=== PATIENT | female | born 1960 | race Caucasian/White ===

== ENCOUNTER 2018-03-15 08:59 | Emergency (ER) | payer OTHER ==
[~2018-03-15] VITALS: Ht 157.5 cm; Wt 81.7 kg
[2018-03-15] MEDS ORDERED: ALBU90OI INH (10:00)
[2018-03-15] MEDS ORDERED: Zithromax250 MG PO (10:00)
[2018-03-15] MEDS ORDERED: Prednisone20 MG PO (10:00)
[2018-03-15] MEDS ORDERED: Ultram50 MG PO (10:00)
[2018-03-15] MEDS ORDERED: Naprosyn500 MG PO (10:11)
== END 2018-03-15 10:25 | disposition home or self-care (01) ==
LOC: ER 08:59
DX: J01.90 Acute sinusitis, unspecified (principal); J32.9 Chronic sinusitis, unspecified; S40.021A Contusion of right upper arm, initial encounter; F17.200 Nicotine dependence, unspecified, uncomplicated; X58.XXXA Exposure to other specified factors, initial encounter
CPT/HCPCS: 99283

== ENCOUNTER 2019-05-09 14:39 | Observation (INO) | payer OTHER ==
[~2019-05-09] VITALS: Ht 157.5 cm; Wt 81.4 kg
[~2019-05-09 14:39] MED LIST changes: -NAPR500 PO
[2019-05-09 15:15] LABS: BASOPHILS ABSOLUTE AUTO 0.06 K/mm3 (0.00-0.23); BASOPHILS PERCENT AUTO 1 % (0-2); EOSINOPHILS ABSOLUTE AUTO 0.12 K/mm3 (0.00-0.68); EOSINOPHILS PERCENT AUTO 2 % (0-6); Hematocrit 46.7 % (33.0-51.0); Hemoglobin 15.2 g/dL (11.5-16.0); IMMATURE GRAN ABSOLUTE AUTO 0.02 K/mm3 (0.00-0.10); IMMATURE GRAN PERCENT AUTO 0 % (0-1); LYMPHOCYTES ABSOLUTE AUTO 1.98 K/mm3 (0.84-5.20); LYMPHOCYTES PERCENT AUTO 24 % (21-46); MONOCYTES ABSOLUTE AUTO 0.66 K/mm3 (0.16-1.47); MONOCYTES PERCENT AUTO 8 % (4-13); Mean Corpuscular HGB 31.3 pg (26.0-34.0); Mean Corpuscular HGB Conc 32.5 g/dL (31.5-36.5); Mean Corpuscular Volume 96 fL (80-100); Mean Platelet Volume 9.5 fL (9.1-12.4); NEUTROPHILS ABSOLUTE AUTO 5.29 K/mm3 (1.96-9.15); NEUTROPHILS PERCENT AUTO 65 % (41-73); Platelet Count 283 K/mm3 (150-400); RDW Coefficient Variation 12.7 % (11.7-14.2); RDW Standard Deviation 45.1 fL (35.1-46.3); Red Blood Cell Count 4.86 M/mm3 (3.80-5.20); White Blood Cell Count 8.13 K/mm3 (4.00-11.30)
[2019-05-09 15:43] LABS: Alanine Aminotransfer (ALT/SGP 20 U/L (12-78); Albumin, Blood 3.9 g/dL (3.4-5.0); Albumin/Globulin Ratio 1.2 (0.8-1.8); Alk Phos 85 U/L (50-136); Anion Gap 4 mmol/L (6-16); Aspartate Aminotrans (AST/SGOT 11 U/L (12-37); Bilirubin, Total 0.3 mg/dL (0.1-1.0); Blood Urea Nitrogen 11 mg/dL (8-24); CO2, Blood 25 mmol/L (21-32); Calcium, Blood 9.1 mg/dL (8.5-10.1); Chloride, Blood 111 mmol/L (98-108); Creatinine, Blood 0.84 mg/dL (0.40-1.00); Globulin, Blood 3.2 g/dL (2.2-4.0); Glomerular Filtration Rate >60 (60-); Glucose, Blood 89 mg/dL (70-99); Sodium, Blood 140 mmol/L (136-145); Total Protein, Blood 7.1 g/dL (6.4-8.2)
[2019-05-09 15:45] LABS: Troponin I 0.426 ng/mL (0.000-0.040)
[2019-05-09 19:14] LABS: Mean Platelet Volume 9.6 fL (9.1-12.4); Platelet Count 277 K/mm3 (150-400)
[2019-05-09 19:30] LABS: International Normalized Ratio 1.02; Prothrombin Time Results 10.9 Sec (9.7-11.5)
--- NOTE | 2019-05-09 20:50 | NUR ---
ASSUMED CARE OF PATIENT AT APPROXIMATELY 2034 FROM ED RICHI Tapia PATIENT ALERT AND ORIENTED X4; TRANSFER FROM ED TO PCU STRETCHER INDEPENDENTLY. PATIENT APPEARS ANXIOUS. PATIENT REPORTS SHE DOESNT LIKE TAKING MEDICATION BECAUSE SHE MAY BECOME DROWSY. PATIENT REPORTED SHE IS MOVING TO [place] TO FIND A NONPROFIT ADMIN JOB; CAR IS LOADED UP. PATIENT DENIES CP/PRESSURE, NUMBNESS, TINGLING, DIZZINESS AND NAUSEA. PATIENT'S BIGGEST COMPLAINT IS NOT BEING ABLE TO EAT IN ER. PATIENT GIVEN TRAY THAT WAS WAITING FOR HER. PATIENT REPORTS SHE MAY TAKE MEDICATIONS. PIV S/L. ADMISSION COMPLETE. PATIENT CURRENTLY RESTING IN BED; CALL LIGHT IN REACH; BED IN LOWEST POSISTION; WILL CONTINUE TO MONITOR AND ASSESS UNTIL END OF SHIFT.
[2019-05-09] MEDS ORDERED: NAPR500 PO (21:07)
--- NOTE | 2019-05-09 21:50 | NUR ---
AT APPROXIMATELY 2135 THIS RN WALKED INTO ROOM TO FIND PATIENT IN BATHROOM; PATIENT CAME OUT WITH CIVILIAN CLOTHES OFF; GOWN OFF; TELE OFF AND PATIENT ANXIOUS; WANTING TO LEAVE; REPORTS "THEY KEPT ASKING ME DOWN THERE TO WAIT.. WAIT.. WAIT"; "EVER SINCE SHE TALKED TO ME DOWN THERE". PATIENT REPORTS SHE DOESNT LIKE TO TAKE ALOT OF MEDICATIONS; ALL OF THESE ARE STRESSING HER OUT. PATIENT EXPRESSED FRUSTRATION WITH NOT BEING ABLE TO EAT WHEN SHE WANTED TO. "I'M JUST GOING TO GO". PATIENT REPORTS SHE WAS PLANNING ON GOING TO [place] TO BEGIN WITH. PATIENT REPORTS SHE WANTS TO BE IN [place] IN CASE THEY FIND ANYTHING BAD. PATIENT CONCERNED ABOUT TAKING MEDICATIONS HERE AND BEING DROWSY. PATIENT REPORTS "MY CAR IS ALL LOADED UP"; PATIENT REPORTS SHE WAS LEAVING [place] FOR STUDENT FORGIVENESS AND [place] HAS MORE NONPROFITS. PATIENT REPORTS HER FRIEND WILL PICK HER UP AND TAKER HER TO HER CAR IN [facility]. FAMILY FRIEND ARRIVED AT 2156. PATIENT SIGNED AMA WITH JULEE Bhagat RN PCU. JULEE Otto REMOVED IV. PATIENTS FRIEND REPORTS PATIENT IS STRESSED AND REPORTS "YOU ARE FINE".
--- NOTE | 2019-05-09 22:02 | NUR ---
PATIENT LEFT AMA WALKING WITH EFM PAPERWORK IN HAND.
== END 2019-05-09 22:00 | disposition left against medical advice (07) ==
LOC: ER 14:39 → SURS 14:40 → PCU 19:59
PROVIDERS: Emergency Medicine; ADMIT Internal Medicine
DX: I21.4 Non-ST elevation (NSTEMI) myocardial infarction (principal); I20.9 Angina pectoris, unspecified; I10 Essential (primary) hypertension; E78.5 Hyperlipidemia, unspecified; E66.9 Obesity, unspecified; F17.210 Nicotine dependence, cigarettes, uncomplicated; Z66 Do not resuscitate; Z79.1 Long term (current) use of non-steroidal anti-inflammatories (NSAID)
CPT/HCPCS: 71046; 80053; 84484; 85025; 85049; 85610; 85730; 93005; 93010; 99285-25; G0378

== ENCOUNTER → 2019-05-09 | Outpatient (CLI) | payer OTHER ==
[~2019-05-09] MED LIST: ALBU90OI INH; NAPR500 PO; Naprosyn500 MG PO; Prednisone20 MG PO; Ultram50 MG PO; Zithromax250 MG PO
[2019-05-09 13:44] LABS: BASOPHILS ABSOLUTE AUTO 0.05 K/mm3 (0.00-0.23); BASOPHILS PERCENT AUTO 1 % (0-2); EOSINOPHILS ABSOLUTE AUTO 0.11 K/mm3 (0.00-0.68); EOSINOPHILS PERCENT AUTO 1 % (0-6); Hematocrit 48.2 % (33.0-51.0); Hemoglobin 15.8 g/dL (11.5-16.0); IMMATURE GRAN ABSOLUTE AUTO 0.02 K/mm3 (0.00-0.10); IMMATURE GRAN PERCENT AUTO 0 % (0-1); LYMPHOCYTES ABSOLUTE AUTO 1.77 K/mm3 (0.84-5.20); LYMPHOCYTES PERCENT AUTO 23 % (21-46); MONOCYTES ABSOLUTE AUTO 0.53 K/mm3 (0.16-1.47); MONOCYTES PERCENT AUTO 7 % (4-13); Mean Corpuscular HGB 31.3 pg (26.0-34.0); Mean Corpuscular HGB Conc 32.8 g/dL (31.5-36.5); Mean Corpuscular Volume 95 fL (80-100); Mean Platelet Volume 9.3 fL (9.1-12.4); NEUTROPHILS ABSOLUTE AUTO 5.15 K/mm3 (1.96-9.15); NEUTROPHILS PERCENT AUTO 68 % (41-73); Platelet Count 271 K/mm3 (150-400); RDW Coefficient Variation 12.9 % (11.7-14.2); RDW Standard Deviation 44.8 fL (35.1-46.3); Red Blood Cell Count 5.05 M/mm3 (3.80-5.20); White Blood Cell Count 7.63 K/mm3 (4.00-11.30)
[2019-05-09 14:05] LABS: Albumin, Blood 4.2 g/dL (3.4-5.0); Albumin/Globulin Ratio 1.2 (0.8-1.8); Bilirubin, Total 0.3 mg/dL (0.1-1.0); Bun/Creatinine Ratio 8.3 (12.0-20.0); Calcium, Blood 9.2 mg/dL (8.5-10.1); Creatinine, Blood 1.08 mg/dL (0.40-1.00); Globulin, Blood 3.5 g/dL (2.2-4.0); Potassium, Blood 3.9 mmol/L (3.5-5.5); Thyroid Stimulating Hormone 0.997 uIU/mL (0.360-4.800); Total Protein, Blood 7.7 g/dL (6.4-8.2); Troponin I 0.333 ng/mL (0.000-0.040)
== END ==
LOC: LAB SHORT 13:40 → LAB EV 13:40
PROVIDERS: Physician Assistant
DX: R07.9 Chest pain, unspecified (principal)
CPT/HCPCS: 80053; 83690; 84443; 84484; 85025; 85379